=== PATIENT | male | born 1930 | race Caucasian/White ===

== ENCOUNTER 2016-10-27 10:07 | Emergency (ER) | payer OTHER ==
[~2016-10-27] VITALS: Ht 162.6 cm; Wt 54.3 kg
[~2016-10-27 10:07] MED LIST: ALBU1AER INH; AZIT250T43 PO; LOVA20TA PO
[2016-10-27 10:13] VITALS: BP 137/84; PULSE 83; RESP 15; TEMP 97.5; O2SAT 96
--- NOTE | 2016-10-27 11:17 | RADRPT ---
EXAM DATE/TIME: 10/27/2016 11:05 [facility] COMPARISON: No previous studies available for comparison. INDICATIONS : Left shoulder pain; no known injury. MEDICAL HISTORY : None. SURGICAL HISTORY : ORIF left shoulder. ENCOUNTER: Initial ACUITY: 1 week PAIN SCORE: 6/10 LOCATION: Left shoulder. FINDINGS: No definite fractures, or dislocations are identified. No definite lytic or sclerotic lesion is seen . Slight osteopenia is seen. Side plate and screws traverse the proximal humerus. CONCLUSION: Chronic changes and no evidence for acute fracture. Joe Gibson MD on October 27, 2016 at 11:15 Board Certified Radiologist. This report was verified electronically.
[2016-10-27] MEDS ORDERED: CODE30TA2 PO (12:41)
--- NOTE | 2016-10-27 12:43 | PD ---
HPI Chief Complaint: Injury Time Seen by Provider: 10:53 Travel History International Travel<30 days: No Contact w/Intl Traveler<30days: No Traveled to known affect area: No History of Present Illness HPI HAS HAD CHRONIC LEFT SHOULDER PAIN, BUT USUALLY IMPROVES WITH TIME...THIS PARTICULAR PAIN IS SHARP AND AT SHOULDER, WORSENED BY MOVEMENT, ONSET WAS AFTER REACHING UP AT [facility]. PFSH Past Medical History Hx Anticoagulant Therapy: Yes (81 MG ASA, DAILY) Heart Rhythm Problems: Yes (CHRONIC BRADYCARDIA) Cancer: No Cardiovascular Problems: Yes (HX PR) High Cholesterol: Yes Diminished Hearing: No Endocrine: No Gastrointestinal Disorders: Yes (HX ULCER) Genitourinary: No Hepatitis: No Hiatal Hernia: No Immune Disorder: No Musculoskeletal: Yes Neurologic: No Psychiatric: No Respiratory: No Immunizations Current: Yes Myocardial Infarction: Yes Past Surgical History Abdominal Surgery: No AICD: No Body Medical Devices: PLATE LEFT KNEE, SCREWS LEFT SHOULDER Ear Surgery: No Endocrine Surgery: No Eye Surgery: No Genitourinary Surgery: No Joint Replacement: No Pacemaker: No Thoracic Surgery: No Tonsillectomy: Yes Other Surgery: Yes (RIGHT 4TH DIGIT TENDON REPAIR) Social History Alcohol Use: No Tobacco Use: No Substance Use: No Allergies-Medications (Allergen,Severity, Reaction): Coded Allergies: No Known Allergies (Verified , 10/27/16) Reported Meds & Prescriptions Reported Meds & Active Scripts Active No Active Prescriptions or Reported Medications Review of Systems Musculoskeletal: Positive: Limited ROM, Pain Physical Exam Narrative GENERAL: SKIN: Warm and dry. HEAD: Atraumatic. Normocephalic. EYES: Pupils equal and round. No scleral icterus. No injection or drainage. ENT: No nasal bleeding or discharge. Mucous membranes pink and moist. NECK: Trachea midline. No JVD. CARDIOVASCULAR: Regular rate and rhythm. RESPIRATORY: No accessory muscle use. Clear to auscultation. Breath sounds equal bilaterally. GASTROINTESTINAL: Abdomen soft, non-tender, nondistended. Hepatic and splenic margins not palpable. MUSCULOSKELETAL: Extremities without clubbing, cyanosis, or edema. No obvious deformities. LIMITED ROM WITH REPRODUCIBLE SHARP PAIN WITH ABDUCTION PAST 100DEGREES NEUROLOGICAL: Awake and alert. No obvious cranial nerve deficits. Motor grossly within normal limits. Five out of 5 muscle strength in the arms and legs. Normal speech. PSYCHIATRIC: Appropriate mood and affect; insight and judgment normal. Data Data Last Documented VS Vital Signs Date Time Temp Pulse Resp B/P Pulse Ox O2 Delivery O2 Flow Rate FiO2 10/27/16 10:13 97.5 83 15 137/84 96 Orders Shoulder, Limited(2vws) (10/27/16 ) MDM Medical Decision Making Medical Screen Exam Complete: Yes Emergency Medical Condition: Yes Medical Record Reviewed: Yes Differential Diagnosis ARTHRITIS V FX V DISLOCATION Narrative Course PATIENT DID WELL DURING OBSERVATION PERIOD, PAIN DECREASED DESPITE NO PAIN MANAGEMENT AND HE TURNED DOWN ANY NARCOTIC PAIN MEDS FOR NOW, HAPPY WITH NEGATIVE FX/DISLOCATION FINDINGS ON XRAY. Diagnosis Primary Impression: LEFT SHOULDER ARTHRITIS Scripts Codeine-Acetaminophen 30-300 mg Tab1 Tab PO Q4H PRN (PAIN) #20 TAB Prov:Shekhar Angel MD 10/27/16 Disposition: 01 DISCHARGE HOME Condition: Stable Shekhar Angel MD Oct 27, 2016 12:42
== END 2016-10-27 12:52 | disposition home or self-care (01) ==
LOC: PHED 10:07
DX: M19.012 Primary osteoarthritis, left shoulder (principal); G89.29 Other chronic pain
CPT/HCPCS: 73030; 99283

== ENCOUNTER 2017-08-06 09:05 | Emergency (ER) | payer OTHER ==
[~2017-08-06] VITALS: Ht 162.6 cm; Wt 49.5 kg
[~2017-08-06 09:05] MED LIST changes: -ALBU1AER INH; -AZIT250T43 PO; +CODE30TA2 PO; -LOVA20TA PO
[2017-08-06 09:08] VITALS: BP 155/70; PULSE 76; RESP 16; TEMP 97.7; O2SAT 99
--- NOTE | 2017-08-06 09:15 | PD ---
HPI Chief Complaint: GI Complaint Time Seen by Provider: 09:15 Travel History International Travel<30 days: No Contact w/Intl Traveler<30days: No Traveled to known affect area: No History of Present Illness HPI 87-year-old male came to the emergency room with his nephew with history of epigastric pain and noticing some blood in his stool last night. Patient says that he noticed blood in his stool only once last night. None today. The pain is in his epigastric area with no radiation. Patient does not appear to be in any discomfort. No aggravating or relieving factors identified. Vital signs are stable. As per the patient and the nephew he has never had the symptoms in the past. Patient does have a primary care doctor but is not on any medications and no blood thinners. They do not recall the last colonoscopy patient had if any. PFSH Past Medical History Narrative Medical List of his past medical, surgical, social and family history reviewed from the nursing note. Hx Anticoagulant Therapy: No Heart Rhythm Problems: Yes (CHRONIC BRADYCARDIA) Cancer: No Cardiovascular Problems: Yes (HX LA) High Cholesterol: Yes Diabetes: No Diminished Hearing: No Endocrine: No Gastrointestinal Disorders: Yes (HX ULCER) Genitourinary: No Hepatitis: No Hiatal Hernia: No Immune Disorder: No Musculoskeletal: Yes Neurologic: No Psychiatric: No Respiratory: No Immunizations Current: Yes Myocardial Infarction: Yes Past Surgical History Abdominal Surgery: No AICD: No Body Medical Devices: PLATE LEFT KNEE, SCREWS LEFT SHOULDER Ear Surgery: No Endocrine Surgery: No Eye Surgery: No Genitourinary Surgery: No Joint Replacement: No Pacemaker: No Thoracic Surgery: No Tonsillectomy: Yes Other Surgery: Yes (RIGHT 4TH DIGIT TENDON REPAIR) Social History Alcohol Use: No Tobacco Use: No Substance Use: No Allergies-Medications (Allergen,Severity, Reaction): Coded Allergies: No Known Allergies (Verified Adverse Reaction, Unknown, 08/06/17) Comments No known drug allergies. Reported Meds & Prescriptions Reported Meds & Active Scripts Active Codeine-Acetaminophen 30-300 mg Tab 1 Tab PO Q4H PRN Narrative Medication List of his home medications reviewed from the nursing note. Review of Systems Except as stated in HPI: all other systems reviewed are Neg Gastrointestinal: Positive: Abdominal Pain, Hematochezia Physical Exam Narrative GENERAL: Awake, alert, elderly, no obvious distress SKIN: Focused skin assessment warm/dry. HEAD: Atraumatic. Normocephalic. EYES: Pupils equal and round. No scleral icterus. No injection or drainage. ENT: No nasal bleeding or discharge. Mucous membranes pink and moist. NECK: Trachea midline. No JVD. CARDIOVASCULAR: Regular rate and rhythm. No murmur appreciated. RESPIRATORY: No accessory muscle use. Clear to auscultation. Breath sounds equal bilaterally. GASTROINTESTINAL: Abdomen soft, epigastric tenderness, nondistended. Hepatic and splenic margins not palpable. MUSCULOSKELETAL: No obvious deformities. No clubbing. No cyanosis. No edema. NEUROLOGICAL: Awake and alert. No obvious cranial nerve deficits. Motor grossly within normal limits. Normal speech. PSYCHIATRIC: Appropriate mood and affect; insight and judgment normal. Data Data Last Documented VS Vital Signs Date Time Temp Pulse Resp B/P (MAP) Pulse Ox O2 Delivery O2 Flow Rate FiO2 08/06/17 12:18 64 16 144/68 (93) 97 08/06/17 09:08 97.7 Orders Orders Complete Blood Count With Diff (08/06/17 09:22) Comprehensive Metabolic Panel (08/06/17 09:22) Lipase (08/06/17 09:22) Prothrombin Time / Inr (Pt) (08/06/17 09:22) Urinalysis - C+S If Indicated (08/06/17 09:22) Ct Abd/Pel W Iv Contrast(Rout) (08/06/17 09:22) Iv Access Insert/Monitor (08/06/17 09:22) Ecg Monitoring (08/06/17 09:22) Oximetry (08/06/17 09:22) Sodium Chloride 0.9% Flush (Ns Flush) (08/06/17 09:30) Oral Contrast - Adult (08/06/17 09:31) Diatrizoate Liq ( Gastroview Liq) (08/06/17 09:46) Sodium Chlor 0.9% 1000 Ml Inj (Ns 1000 M (08/06/17 10:15) Iohexol 350 Inj (Omnipaque 350 Inj) (08/06/17 10:44) Urinary Catheter Insert/Apply (08/06/17 11:26) Ed Discharge Order (08/06/17 11:48) Labs Laboratory Tests Test 08/06/17 09:36 4/20/18 11:05 White Blood Count 5.2 TH/MM3 Red Blood Count 3.89 MIL/MM3 Hemoglobin 12.3 GM/DL Hematocrit 35.4 % Mean Corpuscular Volume 90.9 FL Mean Corpuscular Hemoglobin 31.6 PG Mean Corpuscular Hemoglobin Concent 34.7 % Red Cell Distribution Width 13.0 % Platelet Count 194 TH/MM3 Mean Platelet Volume 7.0 FL Neutrophils (%) (Auto) 55.4 % Lymphocytes (%) (Auto) 35.7 % Monocytes (%) (Auto) 6.1 % Eosinophils (%) (Auto) 2.0 % Basophils (%) (Auto) 0.8 % Neutrophils # (Auto) 2.9 TH/MM3 Lymphocytes # (Auto) 1.9 TH/MM3 Monocytes # (Auto) 0.3 TH/MM3 Eosinophils # (Auto) 0.1 TH/MM3 Basophils # (Auto) 0.0 TH/MM3 CBC Comment DIFF FINAL Differential Comment Prothrombin Time 11.3 SEC Prothromb Time International Ratio 1.1 RATIO Blood Urea Nitrogen 24 MG/DL Creatinine 0.70 MG/DL Random Glucose 89 MG/DL Total Protein 7.6 GM/DL Albumin 3.8 GM/DL Calcium Level 9.5 MG/DL Alkaline Phosphatase 68 U/L Aspartate Amino Transf (AST/SGOT) 16 U/L Alanine Aminotransferase (ALT/SGPT) 21 U/L Total Bilirubin 1.3 MG/DL Sodium Level 141 MEQ/L Potassium Level 3.7 MEQ/L Chloride Level 103 MEQ/L Carbon Dioxide Level 31.3 MEQ/L Anion Gap 7 MEQ/L Estimat Glomerular Filtration Rate 107 ML/MIN Lipase 52 U/L Urine Collection Type CLEAN CATCH Urine Color YELLOW Urine Turbidity CLEAR Urine pH 6.5 Urine Specific [place] LESS/EQUAL 1.005 Urine Protein NEG mg/dL Urine Glucose (UA) NEG mg/dL Urine Ketones NEG mg/dL Urine Occult Blood NEG Urine Nitrite NEG Urine Bilirubin NEG Urine Urobilinogen 0.2 MG/DL Urine Leukocyte Esterase NEG Urine RBC 0-3 /hpf Urine Squamous Epithelial Cells 0-5 /hpf Microscopic Urinalysis Comment CULT NOT INDICATED Urine Collection Time 11:05 [facility] Medical Decision Making Medical Screen Exam Complete: Yes Emergency Medical Condition: Yes Medical Record Reviewed: Yes Differential Diagnosis Acute gastritis, acute pancreatitis, diverticular bleed, lower GI bleed Narrative Course 10:59 AM blood test results are back and within acceptable limits. Waiting for the CT scan of the abdomen and pelvis to be read. Patient was given IV fluid bolus. Given the fact that Hemoccult is negative and if the CAT scan is within normal limit patient will be discharged home. This has been conveyed to the patient as well as his nephew. 11:24 AM the nurse just informed me that patient is having hard time urinating even though his bladder seems to be full. I have ordered for a [place] catheter. Patient may have urinary retention from enlarged prostate that I could see on the CAT scan. Still waiting for the CAT scan report. 11:49 AM UA is resulted and is negative. Patient had 600 mL's of urine output soon after putting the catheter in. He will go home with catheter leg bag. Procedures EKG Prior to Arrival: No HemaPrompt Point of Care Internal Pos. & Neg. Controls: Passed Fecal Specimen Occult Blood: Negative Diagnosis Primary Impression: Abdominal pain Qualified Codes: R10.13 - Epigastric pain Additional Impressions: Urinary retention Hematochezia Referrals: Dru Kincaid MD 3 days Primary Care Physician 2 days Additional Instructions: Return to the emergency room if condition worsens any other new concerns. Otherwise follow-up with the urologist was name and number been provided to you on the discharge instruction. Follow the instructions of the nurse on taking care of the catheter in the leg bag. Med/Other Pt SpecificInfo: No Meds Exist/No RX given Disposition: 01 DISCHARGE HOME Condition: Stable Lucio Fung MD Aug 06, 2017 09:15
[2017-08-06] MEDS ORDERED: SODIUM CHLORIDE 0.9% FLUSH 10 ML FLUSH IV FLUSH PRN (09:30)
[2017-08-06 09:36] VITALS: O2SAT 99
[2017-08-06] MEDS ORDERED: DIATRIZOATE MEGLUM/DIATRIZOATE SOD 9 ML CUP ONE (09:46)
[2017-08-06 09:49] LABS: AUTOMATED NEUTROPHIL # 2.9 TH/MM3 (1.8-7.7); BASOPHIL % 0.8 % (0.0-2.0); EOSINOPHIL # 0.1 TH/MM3 (0-0.4); HEMATOCRIT 35.4 % (39.0-51.0); HEMOGLOBIN 12.3 GM/DL (13.0-17.0); LYMPH % 35.7 % (9.0-44.0); LYMPHOCYTE # 1.9 TH/MM3 (1.0-4.8); MEAN CELL VOLUME 90.9 FL (80.0-100.0); MEAN CORPUSCULAR HEMOGLOBIN 31.6 PG (27.0-34.0); MEAN CORPUSCULAR HGB CONC 34.7 % (32.0-36.0); MONO % 6.1 % (0.0-8.0); MONOCYTE # 0.3 TH/MM3 (0-0.9); NEUT % 55.4 % (16.0-70.0); PLATELET COUNT 194 TH/MM3 (150-450); RED BLOOD COUNT 3.89 MIL/MM3 (4.50-5.90); WHITE BLOOD COUNT 5.2 TH/MM3 (4.0-11.0)
[2017-08-06 10:01] LABS: CHLORIDE 103 MEQ/L (98-107); SODIUM (NA) 141 MEQ/L (136-145)
[2017-08-06 10:04] LABS: CALCIUM 9.5 MG/DL (8.5-10.1); INTERNATIONAL NORMALIZED RATIO 1.1 RATIO; PROTHROMBIN TIME - PATIENT 11.3 SEC (9.8-11.6)
[2017-08-06 10:05] LABS: ALBUMIN 3.8 GM/DL (3.4-5.0); BICARBONATE 31.3 MEQ/L (21.0-32.0); BLOOD UREA NITROGEN 24 MG/DL (7-18); GLUCOSE,RANDOM 89 MG/DL (74-106)
[2017-08-06 10:07] LABS: ALT (GPT) 21 U/L (12-78); AST (GOT) 16 U/L (15-37); GLOMERULAR FILTRATION RATE 107 ML/MIN (>89)
[2017-08-06 10:09] LABS: TOTAL BILIRUBIN ADULT 1.3 MG/DL (0.2-1.0); TOTAL PROTEIN 7.6 GM/DL (6.4-8.2)
[2017-08-06 10:10] LABS: ALKALINE PHOSPHATASE 68 U/L (45-117)
[2017-08-06] MEDS ORDERED: SODIUM CHLOR 0.9% 1000 ML INJ 1,000 ML IV ONE (10:15)
[2017-08-06 10:17] VITALS: BP 167/85; PULSE 77; RESP 18
[2017-08-06] MEDS ORDERED: IOHEXOL 350 MG/ML 10 ML VIAL (for RAD DIAG) IVCONTRAST ONE (10:44)
[2017-08-06 11:31] LABS: BILIRUBIN, URINE NEG (NEG); BLOOD, URINE NEG (NEG); GLUCOSE,URINE NEG (NEG); KETONE, URINE NEG (NEG); NITRITE,URINE NEG (NEG); PH, URINE 6.5 (5.0-8.5); URINE COLOR YELLOW (YELLW/STRAW); URINE LEUKOCYTE ESTERASE NEG (NEG)
--- NOTE | 2017-08-06 11:35 | RADRPT ---
EXAM DATE/TIME: 08/06/2017 10:24 [facility] COMPARISON: No previous studies available for comparison. INDICATIONS : Mid abdominal pain. IV CONTRAST: 85 cc Omnipaque 350 (iohexol) IV ORAL CONTRAST: Prescribed oral contrast ingested. RADIATION DOSE: 4.75 CTDIvol (mGy) MEDICAL HISTORY : Myocardial infarction. SURGICAL HISTORY : None. ENCOUNTER: Initial ACUITY: 1 day PAIN SCALE: 5/10 LOCATION: [facility] TECHNIQUE: Volumetric scanning of the abdomen and pelvis was performed. Using automated exposure control and adjustment of the mA and/or kV according to patient size, radiation dose was kept as low as reasonably achievable to obtain optimal diagnostic quality images. DICOM format image data is av ailable electronically for review and comparison. FINDINGS: Order aorta lungs are clear. There is no pericardial effusion. The liver is free of focal defects. Spleen and pancreas unremarkable The adrenal glands appear normal There is symmetric renal function Distal ascites or adenopathy Moderate Vas-Cath cases are evident Pelvis the prostate is prominent. There diverticulitis sigmoid colon without significant diverticuli tis present do not see inflammatory changes. Valgus pattern is somewhat nonspecific with dilated loops of large and small bowel. Visualized obstr uction. There is no free air. CONCLUSION: Nonspecific bowel gas pattern as above. Diverticula in the sigmoid colon without diverticulitis I do not see an inflammatory changes in the abdomen. Peng Rascon MD FACR on August 06, 2017 at 11:31 Board Certified Radiologist. This report was verified electronically.
[2017-08-06 11:43] LABS: RBC, URINE 0-3 /hpf (0-3); SQUAMOUS EPITHELIAL CELL URINE 0-5 /hpf (0-5)
[2017-08-06 12:18] VITALS: BP 144/68
== END 2017-08-06 12:26 | disposition home or self-care (01) ==
LOC: PHED 09:05
DX: R10.13 Epigastric pain (principal); R33.9 Retention of urine, unspecified; K92.1 Melena; R00.1 Bradycardia, unspecified; I25.2 Old myocardial infarction; E78.00 Pure hypercholesterolemia, unspecified
CPT/HCPCS: 51702; 74177; 80053; 81001; 83690; 85025; 85610; 96360; 99284; J7030; Q9963; Q9967